=== PATIENT | female | born 1995 | race Caucasian/White ===

== ENCOUNTER 2021-11-04 13:27 | Emergency (ER) | payer MEDICAID, OTHER ==
[~2021-11-04] VITALS: Ht 162.6 cm; Wt 87.1 kg
[2021-11-04 13:33] VITALS: BP 162/105
[2021-11-04] MEDS: BACITRACIN OINT 500 UNITS/GM PKT TP ONE (14:34)
[2021-11-04] MEDS ORDERED: NAPR-54 PO (14:50)
[2021-11-04] MEDS ORDERED: AMOX-999 PO (14:50)
[2021-11-04] MEDS ORDERED: BACI1PAC6 TP (14:51)
[2021-11-04 15:19] VITALS: BP 127/88
== END 2021-11-04 15:21 | disposition home or self-care (01) ==
LOC: MED 13:27
DX: S61.451A Open bite of right hand, initial encounter (principal); S51.851A Open bite of right forearm, initial encounter; S61.251A Open bite of left index finger without damage to nail, initial encounter; S61.253A Open bite of left middle finger without damage to nail, initial encounter; Z79.2 Long term (current) use of antibiotics; Z79.1 Long term (current) use of non-steroidal anti-inflammatories (NSAID); W54.0XXA Bitten by dog, initial encounter; Y93.89 Activity, other specified; Y92.89 Other specified places as the place of occurrence of the external cause; Y99.8 Other external cause status
CPT/HCPCS: 73090; 73130; 73140; 90471; 90715; 99284; Q0092